=== PATIENT | female | born 1975 | race Caucasian/White ===

== ENCOUNTER 2021-12-16 22:17 | Emergency (ER) | payer OTHER ==
[2021-12-16 22:38] VITALS: BP 133/58; PULSE 73; TEMP 96.4; BMI 45.4
[2021-12-16] MEDS ORDERED: LIDOCAINE HCL 2% JELLY 10 ML CARTRIDGE PR ONE (23:01)
[2021-12-16] MEDS ORDERED: MINERAL OIL ENEMA 133 ML ENEMA PR ONE (23:01)
[2021-12-17] MEDS ORDERED: LIDOCAINE HCL 2% JELLY 10 ML CARTRIDGE ONE (00:41)
== END 2021-12-17 02:51 | disposition home or self-care (01) ==
LOC: JER 22:17
DX: K59.00 Constipation, unspecified (principal); K64.9 Unspecified hemorrhoids
CPT/HCPCS: 74018-TC-FY; 99283-25

== ENCOUNTER 2021-12-28 10:26 | Emergency (ER) | payer OTHER ==
[2021-12-28 10:46] VITALS: BP 146/69; PULSE 77; TEMP 98.1; BMI 44.6
== END 2021-12-28 11:44 | disposition home or self-care (01) ==
LOC: JER 10:26
DX: K59.00 Constipation, unspecified (principal)
CPT/HCPCS: 99281-25